=== PATIENT | male | born 2000 | race Caucasian/White ===

== ENCOUNTER 2023-04-09 21:51 | Emergency (ER) | payer SELFPAY ==
[~2023-04-09] VITALS: Ht 182.9 cm; Wt 87.0 kg
[2023-04-09 21:58] VITALS: BP 132/90; PULSE 71; RESP 16; TEMP 97.6; O2SAT 100
== END 2023-04-09 22:07 | disposition left against medical advice (07) ==
LOC: ER 21:51
DX: R07.9 Chest pain, unspecified (principal); Z53.21 Procedure and treatment not carried out due to patient leaving prior to being seen by health care provider
CPT/HCPCS: 99281